=== PATIENT | male | born 1950 | race American Indian/Alaskan Native ===

== ENCOUNTER 2018-01-16 12:13 | Outpatient (CLI) | payer OTHER ==
--- NOTE | 2018-01-16 18:12 | Cat Scan Report ---
FINAL REPORT EXAM: CT ABDOMEN PELVIS WO CON HISTORY: MICROSCOPIC HEMATURIA/MALIGNANT NEOPLASM OF PROSTATE TECHNIQUE: Axial helical imaging through the abdomen and pelvis with sagittal and coronal reformatted images obtained. Comparison: None FINDINGS: The lung bases are without infiltrate, pneumothorax or pleural fluid collection. The heart appears to be normal size. There is the appearance of fatty infiltration/steatosis of the liver. The spleen, pancreas, kidneys and adrenal glands are unremarkable in appearance. There is no evidence of hydronephrosis, hydroureter or urinary tract calculi. The gallbladder is moderately distended and unremarkable in appearance. The bowel is normal caliber. There are colonic diverticula without radiographic evidence of diverticulitis. The appendix is normal caliber. There is no evidence of pneumoperitoneum or free fluid. The abdominal aorta is normal caliber. There is no evidence of pathologic intra-abdominal adenopathy by CT size criteria. The urinary bladder is mildly distended and unremarkable in appearance. Evaluation for the presence or absence of a bladder mass is limited by lack of contrast. "Seeds" are demonstrated in the prostate gland. The bony structures are notable for spondylitic change of the lumbar spine with grade 1 anterolisthesis L4 on L5, degenerative disc change at L5-S1, multiple level degenerative facet change in the appearance of canal stenosis at the L4-L5 level. There is the appearance of degenerative change of the hip joints bilaterally. IMPRESSION: 1. No evidence of an acute intra-abdominal process. 2. No evidence of hydronephrosis nor urinary tract calculi. 3. "Seeds" in the prostate gland. 4. Colonic diverticula. 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
== END 2018-01-16 12:14 | disposition home or self-care (01) ==
LOC: CT 12:13
PROVIDERS: ATTEND Urology
DX: C61 Malignant neoplasm of prostate (principal); K57.30 Diverticulosis of large intestine without perforation or abscess without bleeding; M47.896 Other spondylosis, lumbar region; M48.061 Spinal stenosis, lumbar region without neurogenic claudication; M16.0 Bilateral primary osteoarthritis of hip; K76.0 Fatty (change of) liver, not elsewhere classified; K82.8 Other specified diseases of gallbladder; Z88.0 Allergy status to penicillin
CPT/HCPCS: 74176